=== PATIENT | female | born 1955 | race Caucasian/White ===

== ENCOUNTER → 2018-05-31 12:12 | Outpatient (CLI) | payer MEDICARE, OTHER, SELFPAY ==
[2018-05-31 14:50] LABS: Thyroid Stim Hormone (TSH) 1.98 uIU/mL (0.358-3.74)
== END ==
PROVIDERS: Family Provider Family Medicine; PCP Family Medicine; Visit Provider Family Medicine
DX: E03.9 Hypothyroidism, unspecified (principal)
CPT/HCPCS: 36415; 84443

== ENCOUNTER → 2018-06-26 10:22 | Outpatient (CLI) | payer MEDICARE, OTHER, SELFPAY | PROVIDERS: Family Provider Family Medicine; PCP Family Medicine; Visit Provider Nurse Practitioner Family | DX: J02.9 Acute pharyngitis, unspecified (principal) | CPT/HCPCS: 87077; 87081 ==

== ENCOUNTER 2018-07-31 11:30 | Outpatient (RCR) | payer MEDICARE, OTHER, SELFPAY ==
--- NOTE | 2018-06-05 14:38 | HP.PTEVAL_ITS ---
Patient's Visit Information JUNIE RICHARDSON is a 63 year old F referred to Physical Therapy by Camilo Melendez DO with a diagnosis of PLANTAR FASCIAL FIBROMATOSIS. Date of Evaluation: 06/05/18 Physical Therapist: Curtis Mercado, PT, - Visit Plan Frequency: 2x /Week Duration: 4 Weeks Plan: US ,manual therapy STM/HAWK calcaneous/plantarfascia,stretching plantar fascia/calf, and low graded progression ankle and arch strengtgening - Subjective Subjective: This 63 y/o female presents to physical therapy with with plantar fascial fibromatosis since 2017. Intially,Tomy did exercises, stretches. Patient location of pain left heel -calcaneus and cramp in toes.Symptoms worse with walking and standing affects ADL'S and housework tasks.Denies parathesia/tingling.Seen Family recommended PT . Dr Huitron did x- rays. Patient overcounter orthotics. SOCIAL: . VOCATION: retired - Pain Left Hand Pain Intensity (Out of 10): 2 Pain Intensity Range: 8 - Objective POSTURE: Bilateral pes cavus. GAIT: antalgic gait decrease stand left side. NEURO: intcat. PALPATION: medial calcanous ,posterior tibilas tendon. AROM: dorsiflexion degrees,plantarflexion 65 degrees ,eversion 5 degrees,inversion 30 degrees,great toe extensors 4/5. MMT: ankle grossly 4/5 dorsiflexion/ plantarflexion ,eversion,inversion. PROPRIOCEPTION: intact - Goals Goal 1:: Patient to be Independant with HEP Goal Time Frame: 4-6 Weeks Goal 2:: Decrease heel pain by 50% or greater to improve gait with less pain Goal Time Frame: 4-6 Weeks Goal 3:: Patient to ambulate with less antalgic with improved kai Goal Time Frame: 4-6 Weeks Goal 4:: Patient be able to perform ADL'S and housework tasks with min limiations with heel pain and functional ambulation Goal Time Frame: 4-6 Weeks Goal 5:: Patient to have min tenderness medial calcaneus duing palaption Goal Time Frame: 4-6 Weeks - Rehabilitation Potential Physical Therapy Diagnosis: This patient has had foot pain calcaneous left since November seen podatrist -stretching . Patient has pain medial calcaneous and posterior tibilas region worse with walking and standing Rehabilitation Potential: Good - Anticipated Interventions Patient/Client Instruction: Educate patient on: Condition, Plan of Care For the Purpose of:: To decrease pain, To increase ROM, To improve nutrient delivery to tissue, To increase oxygenation perfusion, To improve muscle performance and motor function, To improve ability to perform ADL's, To increase tolerance to activity/condition/position, To improve ability of physical actions for home/community/work/leisure, To improve health of tissue, To decrease soft tissue restriction, To increase flexibility/ROM, To improve ability to perform tasks related to life management Therapeutic Exercise to Include: Strength training, Flexibilty training, Active ROM Comment: ankle,plantar fascia For the Purpose of:: To decrease pain, To increase ROM, To improve nutrient delivery to tissue, To increase oxygenation perfusion, To improve muscle performance and motor function, To increase tolerance to activity/condition/ position, To improve ability of physical actions for home/community/work/leisure , To improve health of tissue, To decrease soft tissue restriction, To increase flexibility/ROM, To improve ability to perform tasks related to life management TENS: Yes IF ES: Yes Cryotherapy (ice pack, ice massage): Yes Thermo therapy (hot pack): Yes Ultrasound (thermal/non thermal): Yes For the Purpose of:: To decrease pain, To increase ROM, To improve nutrient delivery to tissue, To increase oxygenation perfusion, To improve health of tissue, To decrease soft tissue restriction Thank you for the opportunity to evaluate your patient. For Medicare and Medicare HMO plans, please review the plan of care and approve it. It will need to be FAXED BACK to us at [phone] for Medicare purposes. Please let me know if there are questions or concerns regarding this plan of care. Physician Signature: Date:
--- NOTE | 2018-07-05 15:23 | HP.PTREVAL_ITS ---
Camilo Melendez, DO, It has been my pleasure to treat JUNIE RICHARDSON over the last 10 visits for PLANTAR FASCIAL FIBROMATOSIS. Please see the progress note below for an update on the physical therapy plan of care! Subjective: Doing better today less pain. Walking with less pain overall, tx has been helping just had more pain overweekend Objective/Function: POSTURE: high cavus. GAIT: mild antalgic gai wiith decrease midstance. NEURO: intact. PALAPTION: tender calf medial spects. MMT : 4/5 ankle. AROM: DF 5 DEGREES,PF 65,EV 10,IN 35 DEGREES. FLEXABLITY: CALF MIN TIGHT Plan Plan: cont with poc interventions 2xweek for 3weeks. US ,manual therapy STM/ HAWK calcaneous/plantarfascia,stretching plantar fascia/calf, and low graded progression ankle and arch strengthening/estim Goals Goal 1:: Patient to be Independant with HEP Goal Time Frame: 4-6 Weeks Goal Progress: Progressing Goal 2:: Decrease heel pain by 50% or greater to improve gait with less pain Goal Time Frame: 4-6 Weeks Goal Progress: Progressing Goal 3:: Patient to ambulate with less antalgic with improved kai Goal Time Frame: 4-6 Weeks Goal Progress: Progressing Goal 4:: Patient be able to perform ADL'S and housework tasks with min limiations with heel pain and functional ambulation Goal Time Frame: 4-6 Weeks Goal Progress: Progressing Goal 5:: Patient to have min tenderness medial calcaneus duing palaption Goal Time Frame: 4-6 Weeks Goal Progress: Progressing Anticipated Interventions Patient/Client Instruction: Educate patient on: Condition, Plan of Care For the Purpose of:: To decrease pain, To increase ROM, To improve nutrient delivery to tissue, To increase oxygenation perfusion, To improve muscle performance and motor function, To improve ability to perform ADL's, To increase tolerance to activity/condition/position, To improve ability of physical actions for home/community/work/leisure, To improve health of tissue, To decrease soft tissue restriction, To increase flexibility/ROM, To improve ability to perform tasks related to life management Therapeutic Exercise to Include: Strength training, Flexibilty training, Active ROM Comment: ankle,plantar fascia For the Purpose of:: To decrease pain, To increase ROM, To improve nutrient delivery to tissue, To increase oxygenation perfusion, To improve muscle performance and motor function, To increase tolerance to activity/condition/ position, To improve ability of physical actions for home/community/work/leisure , To improve health of tissue, To decrease soft tissue restriction, To increase flexibility/ROM, To improve ability to perform tasks related to life management TENS: Yes IF ES: Yes Cryotherapy (ice pack, ice massage): Yes Thermo therapy (hot pack): Yes Ultrasound (thermal/non thermal): Yes For the Purpose of:: To decrease pain, To increase ROM, To improve nutrient delivery to tissue, To increase oxygenation perfusion, To improve health of tissue, To decrease soft tissue restriction Please do not hesitate to contact me at [phone] by phone or Fax: if you have questions or concerns regarding this new plan of care! Sincerely, Curtis Mercado, PT,
--- NOTE | 2018-07-31 12:07 | HP.PTDCSUM ---
HP - PT D/C Summary It has been my pleasure to treat JUNIE RICHARDSON under orders from Camilo Melendez DO, for the diagnosis of PLANTAR FASCIAL FIBROMATOSIS for a total of 15 visit(s). Discharge Date: 07/31/18 Please see the following information for a summary of their discharge status. - Subjective Subjective: Doing alot better able to walk normal. Do all ADL'S anf housework tasks. - Pain Left Hand Pain Intensity (Out of 10): 0 Left Foot Pain Intensity (Out of 10): 0 - Overall Improvement % Improvement: 99 - Objective Objective/Function: NORMAL CADEENE WITH GAIT. AROM: ANKLE WNL. PALAPTION UNREMARKABLE. MMT: 02/18 ,G-S 01/19. NURO: INTACT - Goals Goal 1:: Patient to be Independant with HEP Goal Progress: Goal Met Goal 2:: Decrease heel pain by 50% or greater to improve gait with less pain Goal Progress: Goal Met Goal 3:: Patient to ambulate with less antalgic with improved kai Goal Progress: Goal Met Goal 4:: Patient be able to perform ADL'S and housework tasks with min limiations with heel pain and functional ambulation Goal Progress: Goal Met Goal 5:: Patient to have min tenderness medial calcaneus duing palaption Goal Progress: Goal Met Goal Progress: Goal Met - Plan Plan: D/C TO HEP - D/C Information Discharge Comments: HEP If there are questions or concerns regarding this patient's physical therapy, please feel free to call me at [phone]. Thank you for the referral of this patient. Sincerely, Curtis Mercado, PT,
== END 2018-07-31 19:00 | disposition home or self-care (01) ==
LOC: PT 11:30
PROVIDERS: Family Provider Family Medicine; PCP Family Medicine; Visit Provider Family Medicine
DX: M72.2 Plantar fascial fibromatosis (principal)
CPT/HCPCS: 97035; 97110; 97140; 97162; 97530

== ENCOUNTER → 2020-03-05 12:38 | Outpatient (CLI) | payer MEDICARE, OTHER, SELFPAY ==
[2018-06-23 13:14] VITALS: BMI 28.1
[2020-03-05 14:19] LABS: AST(SGOT) 16 U/L (15-37); Alanine Aminotransfer ALT/SGPT 18 U/L (13-56); Albumin, Serum 3.8 g/dL (3.2-5.0); Alkaline Phosphatase 109 U/L (45-117); Anion Gap 5 (5-15); BUN 20 mg/dL (7-18); BUN/Creat Ratio 22.6 RATIO (10-20); Calcium,Total 9.4 mg/dL (8.5-10.1); Chloride 109 mmol/L (98-107); Creatinine, Serum 0.88 mg/dL (0.55-1.02); EST Glomerular Filtration Rate 68 mL/min (>60); Est Glom Filt Rate - Afr Amer 82 mL/min (>60); Globulin 3.9 g/dL (2.2-4.2); Glucose 83 mg/dL (74-106); Potassium 4.3 mmol/L (3.5-5.1); Protein, Total 7.7 g/dL (6.4-8.2); Sodium Level 142 mmol/L (136-145); Thyroid Stim Hormone (TSH) 0.38 uIU/mL (0.358-3.74)
== END ==
PROVIDERS: PCP Family Medicine; Visit Provider Family Medicine
DX: E03.9 Hypothyroidism, unspecified (principal)
CPT/HCPCS: 80053; 84443

== ENCOUNTER → 2021-10-12 11:45 | Outpatient (CLI) | payer MEDICARE, OTHER, SELFPAY ==
[2021-10-12 15:28] LABS: Vitamin D,25 Hydroxy 46.7 ng/mL
[2021-10-12 15:38] LABS: Absolute Lymphocyte Count 2.74 X10^3/uL (0.83-4.51); Absolute Neutrophil Count 5.4 X10^3/uL (2.0-7.7); Basophil% 1.1 % (0-1); Eosinophil# 0.24 X10^3/uL; Eosinophils% 2.6 % (0-5); Hematocrit 44.1 % (37-47); Hemoglobin 13.8 g/dL (12.0-15.0); Lymphocyte # 2.74 X10^3/ul (0.83-4.51); Lymphocyte % 29.7 % (19-41); Mean Corp Hgb Conc 31.3 g/dL (32-36); Mean Corpuscular Hgb 27.8 pg (27.0-32.0); Mean Corpuscular Volume 88.9 fL (81-99); Mean Platelet Vol. 10.6 fl (6.2-12.0); Monocyte# 0.73 X10^3/uL; Monocyte% 7.9 % (0-10); NRBC Flagged by Analyzer 0 % (0-5); Neutrophil % 58.4 % (47-70); Platelet Count 261 K/mm3 (150-450); RBC Distribution Width CV 13.2 % (11.6-14.6); RBC Distribution Width SD 42.7 fl (35.1-43.9); Red Blood Count 4.96 M/mm3 (4.2-5.4); White Blood Count 9.2 K/mm3 (4.4-11.0)
[2021-10-12 15:39] LABS: ALB/GLOB Ratio 0.9 RATIO (0.9-2.4); AST(SGOT) 21 U/L (15-37); Alanine Aminotransfer ALT/SGPT 31 U/L (13-56); Albumin, Serum 3.7 g/dL (3.2-5.0); Alkaline Phosphatase 101 U/L (45-117); Anion Gap 6 (5-15); BUN 14 mg/dL (7-18); BUN/Creat Ratio 16.5 RATIO (10-20); Calcium,Total 8.9 mg/dL (8.5-10.1); Chloride 107 mmol/L (98-107); Cholesterol 228 mg/dL (200); Creatinine, Serum 0.85 mg/dL (0.55-1.02); EST Glomerular Filtration Rate 71 mL/min (>60); Est Glom Filt Rate - Afr Amer 85 mL/min (>60); Globulin 3.9 g/dL (2.2-4.2); Glucose 87 mg/dL (74-106); High Density Lipoprotein 42 mg/dL; Potassium 4.4 mmol/L (3.5-5.1); Protein, Total 7.6 g/dL (6.4-8.2); Sodium Level 141 mmol/L (136-145); Thyroid Stim Hormone (TSH) 0.92 uIU/mL (0.358-3.74); Triglycerides 139 mg/dL; Very Low Density Lipoprotein 28 mg/dL (5-40)
[2021-10-12 15:47] LABS: Amphetamine Urine VISTA NEGATIVE (<1000 ng/mL); Barbiturate Urine VISTA NEGATIVE (< 200 ng/mL); Benzodiazepine Urine VISTA NEGATIVE (< 200 ng/mL); Cocaine Urine VISTA NEGATIVE (< 300 ng/mL); Ecstacy Urine VISTA NEGATIVE (< 500 ng/mL); Methadone Urine VISTA NEGATIVE (< 300 ng/mL); PCP Urine VISTA NEGATIVE (< 25 ng/mL); THC Urine VISTA NEGATIVE (< 50 ng/mL); Vista UDS pH Range 5
== END ==
PROVIDERS: PCP Family Medicine; Referring Provider Physician Assistant; Visit Provider Physician Assistant
DX: Z00.00 Encounter for general adult medical examination without abnormal findings (principal); Z13.220 Encounter for screening for lipoid disorders; E55.9 Vitamin D deficiency, unspecified; E03.9 Hypothyroidism, unspecified; F41.9 Anxiety disorder, unspecified; Z79.899 Other long term (current) drug therapy
CPT/HCPCS: 36415; 80053; 80061; 80307; 82306; 84443; 85025

== ENCOUNTER 2023-07-27 14:30 | Outpatient (RCR) | payer MEDICARE, OTHER, SELFPAY ==
--- NOTE | 2023-07-11 12:49 | HP.OTEVAL ---
Patient's Visit Information Visit Information Visit Information: POOJA RICHARDSON is a 68 year old F, referred to Occupational Therapy by TIFFANY MATTSON, with a diagnosis of left thumb OA. Date of Evaluation: 07/11/23 Occupational Therapist: TIMA Reed/Trell, CHT Subjective Subjective: This 68 year old female was seen for OT eval with dx OA of CMC and MCP of left hand/wrist. pt states she works at [employer] and works 2 days a week for 7 hours a days. pt states she started working there in about Jul. of last Year. pt states she has noticed a left RF trigger finger- along with lack of motion in her IP of thumb- as well as discomfort along thenar region of thumb pt would like to know what she can do to improver her motion and use of left hand. ADLs Comments: pt lives alone does use zero turn mower weekly ( about an hour mowing) does have hand numbness following. pt states she mtg. all other daily tasks IND. Pain left hand: Current Pain Intensity: 1 Pain Intensity Range: 0 and 3 ROM Forearm: right/left WNL Wrist: right 70/65 left 70/50 CMC: right 10 left 15 MP: right 50 left 55 IP: right 55 left 20 Radial Abduction: right 45 left 40 Opposition: Kapandji Opposition scale right 10 left 8 ROM Comments: pt states states she has had left RF trigger finger for over about 6 months Therapist did not observe triggering during this session Strength Highway Maintenance Crew Worker: right 40# left 50# Lateral Pinch: right 16# left 12# Tripod Pinch: right 10# left 10# Strength Comments: pt demo with good environmental inspector strength and slight decrease in lateral pinch Sensation Sensation Comments: states at times but feels its positional or when mowing her grass states she does have wrist braces she tries to sleep in Special Tests Median Nerve Compression Test: left positive Quick DASH-Disab of Arm,Shoulder& Hand Quick DASH Score: 42.8550 Goals Goal:: pt will demo a increase in left lateral pinch by 3# to increase pts ind.with ADLs by d.c Goal:: pt will report no pain greater than 1/10 with use of left hand with ADLs and IADLs by d.c Goal:: Pt will demo understanding of joint protection and ergonomics when performing BADLs and IADLs by d/c Pt will demo understanding of adaptive Equipment use to decrease stress on joints to allow pt to perform BADSL and IADLS at NIKI level. Rehabilitation General Assessment: pt demo with left thumb instability and signs of CTS. Pt demo with left MP UCL hyper mobility. Pt would benefit from skilled OT services 1-2x week for 3-4 weeks to ed. pt on joint protection-supportive bracing for left MP, along with median nerve glides and Thumb stabilization ex. pt demo understanding and agree to POC. Rehabilitation Potential: Good Anticipated Interventions Anticipated Interventions: Strengthening, Triggerpoint Release, Modalities, Joint Protection/Energy Conservation, Ergonomic Education, Education re assistive Equipment, Education re Diagnosis and Home Program Visit Plan Frequency: 1-2x /Week Duration: 2-4 Weeks General Plan: thumb stabilization median nerve glide US TEXT: Thank you for the opportunity to evaluate your patient. For Medicare and Medicare HMO plans, please review the plan of care and approve it. It will need to be FAXED BACK to us at [phone] for Medicare purposes. Please let me know if there are questions or concerns regarding this plan of care. Physician Signature: Date:
== END 2023-07-27 19:00 | disposition home or self-care (01) ==
LOC: OT 14:30
PROVIDERS: PCP Family Medicine
DX: M19.09 Primary osteoarthritis, other specified site (principal)
CPT/HCPCS: 97035; 97110; 97140; 97166; 97530

== ENCOUNTER → 2023-08-01 | Outpatient (CLI) | payer MEDICARE, OTHER, SELFPAY ==
--- NOTE | 2023-08-01 14:36 | BI_ITS ---
MAMMOGRAPHY - BILATERAL SCREENING REASON FOR EXAM: Female, 68 years old. Routine annual screening examination. PERTINENT HISTORY: Non-contributory. TECHNIQUE: Digital bilateral breast krystin (3D mammographic acquisition) in the CC and MLO projections. 2-D mediolateral oblique (MLO) and craniocaudad (CC) views of both breasts were obtained. CAD: Full Field Digital Mammography with Computer Added Detection was performed. COMPARISON: No comparison mammograms available at this time. If any prior films become available, an addendum to this report can be generated. FINDINGS: Breast Composition: The breasts are heterogeneously dense, which may obscure small masses. There are no dominant masses or suspicious calcifications. Benign appearing bilateral axillary lymph nodes. No other significant abnormalities are identified. BI/SCRN MAMM (CAD)W/KRYSTIN BILAT IMPRESSION: Negative screening mammogram. Yearly followup mammogram recommended. (A) ASSESSMENT CATEGORY: BIRADS Category 2: Benign. A letter regarding these results will be sent to the patient by the facility within 30 days. Approximately 10% of breast cancers are not detected by mammography. A normal mammogram should not delay biopsy of a clinically suspicious abnormality. [id number] Electronically Signed: Adolfo Rodriguez MD at 9:44 EDT ,
== END | disposition home or self-care (01) ==
LOC: OPBI 14:34
PROVIDERS: PCP Family Medicine; Referring Provider Family Medicine; Visit Provider Family Medicine
DX: Z12.31 Encounter for screening mammogram for malignant neoplasm of breast (principal)
CPT/HCPCS: 77063; 77067